=== PATIENT | male | born 1980 | race Caucasian/White ===

== ENCOUNTER → 2024-03-10 08:27 | Outpatient (REF) | payer BC, SELFPAY ==
[2024-03-10 10:16] LABS: ALT (SGPT) 30 U/L (0-50); AST (SGOT) 24 U/L (17-59); Albumin 4.4 g/dl (3.5-5.0); Alkaline Phosphatase 54 U/L (38-126); Blood Urea Nitrogen 14 mg/dl (9-20); Calcium 9.5 mg/dl (8.4-10.2); Carbon Dioxide 27 mmol/L (22-30); Chloride 102 mmol/L (98-107); Glucose 108 mg/dl (70-99); HDL Cholesterol 59 mg/dl; LDL Cholesterol, Calculated 72 mg/dl; Potassium 4.2 mmol/L (3.5-5.1); Sodium 141 mmol/L (135-145); Total Bilirubin 0.3 mg/dl (0.2-1.3); Total Cholesterol 145 mg/dl (50-199); Total Protein 6.7 g/dl (6.3-8.2); Triglyceride 70 mg/dl (10-149); Very Low Density Lipoprotein 14 mg/dl (0-30); eGFR > 60.00
[2024-03-10 10:27] LABS: TSH 1.34 uIU/ml (0.47-4.68)
== END ==
LOC: HWLAB 08:27
PROVIDERS: ATTENDING PHYSICIAN Family Medicine
DX: R73.03 Prediabetes (principal); E78.2 Mixed hyperlipidemia
CPT/HCPCS: 36415; 80053; 80061; 83036; 84443

== ENCOUNTER 2024-03-10 14:29 | Emergency (ER) | payer BC, SELFPAY ==
[2024-03-10] VITALS (8 sets, daily range): BP systolic 135–197; BP diastolic 88–108
[2024-03-10 15:01] LABS: % Basophils 0.5 % (0-2); % Eosinophils 2.5 % (0-6); % Immature Granulocytes 0.5 % (0-0.5); % Monocytes 5.5 % (1.7-9.3); Absolute Basophils 0.1 10^3/uL (0-0.2); Absolute Eosinophils 0.4 10^3/uL (0-0.7); Absolute Immature Granulocytes 0.1 10^3/uL (0-0.05); Absolute Lymphocytes 3.7 10^3/uL (1.2-3.4); Absolute Monocytes 0.8 10^3/uL (0.1-0.6); Absolute Neutrophils 9.7 10^3/uL (1.4-6.5); Hematocrit 39.3 % (39.0-52.0); Hemoglobin 13.3 g/dL (13.0-18.0); Mean Corp Hgb Conc. 33.8 g/dL (33.0-37.0); Mean Corpuscular Hgb 27.5 pg (27.0-31.0); Mean Corpuscular Volume 81.4 fL (80.0-94.0); Mean Platelet Volume 11.1 fL (7.4-10.4); Nucleated Red Blood Cells % 0 % (-); Platelet Count 247 10^3/uL (130-400); Red Blood Cell Count 4.83 10^6/uL (4.70-6.10); Red Cell Dist. Width 13.7 % (11.5-14.5); White Blood Cell Count 14.6 10^3/uL (4.8-10.8)
[2024-03-10 15:35] LABS: Troponin I < 0.012 ng/ml
--- NOTE | 2024-03-10 16:46 | ED.GENMED ---
History of Present Illness
<Lois Alva PA-C - Last Filed: 03/10/24 19:41>
General
Chief Complaint: Blood Pressure Problem
Source: patient
Exam Limitations: none
Time Seen by Provider: 03/10/24 16:45
Nursing documentation reviewed up to this point in time: agreed with
History of Present Illness
History of Present Illness:
Patient is a 43-year-old male with history hypertension, diabetes presenting to the emergency department for evaluation of high blood pressure readings at home. Patient states that on Friday he took his blood pressure since his was also
checking her as it was found to be elevated in the 160s over low 100s. Patient called his primary care doctor who decided to start him on a beta-helder. He took 1 dose of metoprolol 50 mg on Friday. He continued to recheck his blood pressure on
Friday and noticed it continuously elevating and his primary care told him to double up on the metoprolol. He was instructed to go to the emergency department if he had blood pressure readings of 200 or greater. Today when he checked his blood
pressure it was 198/120 speaking to the emergency department for further evaluation
Patient denies any chest pain, shortness of breath, dizziness, visual changes. Patient denies any severe headaches, numbness/weakness in lower extremities.
Patient has been on losartan for a few months now. He was previously on amlodipine but stopped due to lower leg swelling.
Past History
<Lois Alva PA-C - Last Filed: 03/10/24 19:41>
Past History
ED Past Medical History: HTN, NIDDM and Other (Aortic aneurysm)
ED Past Surgical History: None
Social History
Tobacco: Non-smoker
Personal:
Living: with family
Employment: Employed
Family History
Family History: Other ('Aortic aneurysm ')
Review of Systems
<Lois Alva PA-C - Last Filed: 03/10/24 19:41>
Review of Systems
Allergies reviewed?: Yes
All Other Systems: ROS reviewed and negative except as documented in HPI and ROS
Phy Exam
<Lois Alva PA-C - Last Filed: 03/10/24 19:41>
Physical Exam
Physical Exam:
Vitals: Hypertensive, otherwise vital signs stable. Afebrile
General: Patient is well appearing, no acute distress. Nontoxic-appearing
Skin: Warm and dry, no rashes or lesions
Head: Normocephalic, atraumatic
Eyes: Sclera nonicteric. EOMs intact. No nystagmus.
Throat: Protecting airway
Neck: Normal ROM, no cervical spine tenderness, no meningismus
Cardiac: Regular rate and rhythm, no murmurs.
Pulm: Normal respiratory effort, no wheezes, rales, rhonchi heard on exam.
Abdomen: Abdomen soft. No abdominal tenderness. No pulsatile mass.
Extremities: No evidence of cyanosis or edema. Great distal pulses
Neuro: AAOx3. CN II-XII intact. No focal neurologic deficits. Strength 5 out of 5 in upper and lower extremities.
Psychiatric: Normal affect.
Course
<Lois Alva PA-C - Last Filed: 03/10/24 19:41>
Orders/Labs/Results
Orders:
Orders
03/10/24 14:39
Electrocardiogram (*1) Urgent
Reason for Study: Hypertension, Benign
EKG- Treatment ONCE
03/10/24 14:50
Complete Blood Count/With Diff Urgent
Troponin I Urgent
Abnormal Lab Results
03/10/24
14:50
WBC 14.6 H 10^3/uL
(4.8-10.8)
MPV 11.1 H fL
(7.4-10.4)
Abs Immat Gran (auto) 0.1 H 10^3/uL
(0-0.05)
Absolute Neuts (auto) 9.7 H 10^3/uL
(1.4-6.5)
Absolute Lymphs (auto) 3.7 H 10^3/uL
(1.2-3.4)
Absolute Monos (auto) 0.8 H 10^3/uL
(0.1-0.6)
03/10/24 14:50
Vital Signs
Blood pressure: 159/98
Initial and Last Documented VS:
Initial Vital Signs
Temp Pulse Resp BP Pulse Ox
97.4 F 78 18 197/108 97
03/10/24 14:35 03/10/24 14:35 03/10/24 14:35 03/10/24 14:35 03/10/24 14:35
Last Documented Vital Signs
Temp Pulse Resp BP Pulse Ox
97.4 F 70 20 155/106 94
03/10/24 14:35 03/10/24 19:35 03/10/24 19:35 03/10/24 19:00 03/10/24 19:35
<Ben Zavala MD - Last Filed: 03/10/24 19:13>
Orders/Labs/Results
Orders:
Orders
03/10/24 14:39
Electrocardiogram (*1) Urgent
Reason for Study: Hypertension, Benign
EKG- Treatment ONCE
03/10/24 14:50
Complete Blood Count/With Diff Urgent
Troponin I Urgent
Abnormal Lab Results
03/10/24
14:50
WBC 14.6 H 10^3/uL
(4.8-10.8)
MPV 11.1 H fL
(7.4-10.4)
Abs Immat Gran (auto) 0.1 H 10^3/uL
(0-0.05)
Absolute Neuts (auto) 9.7 H 10^3/uL
(1.4-6.5)
Absolute Lymphs (auto) 3.7 H 10^3/uL
(1.2-3.4)
Absolute Monos (auto) 0.8 H 10^3/uL
(0.1-0.6)
03/10/24 14:50
Vital Signs
Initial and Last Documented VS:
Initial Vital Signs
Temp Pulse Resp BP Pulse Ox
97.4 F 78 18 197/108 97
03/10/24 14:35 03/10/24 14:35 03/10/24 14:35 03/10/24 14:35 03/10/24 14:35
Last Documented Vital Signs
Temp Pulse Resp BP Pulse Ox
97.4 F 70 20 155/106 94
03/10/24 14:35 03/10/24 19:35 03/10/24 19:35 03/10/24 19:00 03/10/24 19:35
<Lois Alva PA-C - Last Filed: 03/10/24 19:41>
MDM/Problems Addressed
Differential Diagnosis Includes:
Not limited to: Asymptomatic hypertension, hypertensive urgency, hypertensive emergency
MDM/Problems Addressed:
43-year-old male with history HTN presenting with asymptomatic hypertension. Denies any chest pain, shortness of breath, headache, back pain, visual changes. Patient with blood pressure readings of 198/120s at home. Patient currently taking
losartan 100 mg daily for hypertension management. Patient's PCP did recently add metoprolol 50 mg twice daily 2 days ago. Patient has been hypertensive in the emergency department although remains asymptomatic and extremely stable. EKG shows
normal sinus rhythm with no acute ischemic changes. Incomplete right bundle block was noted. Labs reveal chronic leukocytosis otherwise no clinically significant abnormalities. Troponin is negative.
Patient has been monitored in the emergency department for a few hours and has remained completely asymptomatic. Few blood pressure readings have been acceptable and 130s over 80s. Despite persistent hypertension�no indication for IV
antihypertensive management at this time. Patient has had recent changes to blood pressure medication regimen and may need more time to adjust. Will discharge with close return precautions. Patient will be discharged with close primary care
follow-up for further management of hypertension. Patient comfortable this plan. Patient seen with attending physician.
Chronic conditions affecting care:
Hypertension
Acute Exacerbation and/or Progression of Chronic Illness:
Acutely hypertensive
<Lois Alva PA-C - Last Filed: 03/10/24 19:41>
*Pulse Oximetry
Patient hypoxic: no
*EKG
Interpreted by ED Provider?: Yes
EKG Intrepretation Date: 03/10/24
Interpretation: normal
Comparison EKG: changes noted
Heart Rate: 68
Rate: normal
Rhythm: sinus
QRS Pattern: right bundle branch block
*Tobacco Warehouse Manager Interpretation
Rate: Tobacco Warehouse Manager- N/A
*Critical Care Note
Total Time (30-74mins, 75-104mins- exclusive of procedures): Not Applicable
ED Attending Note
<Lois Alva PA-C - Last Filed: 03/10/24 19:41>
-
Portions of this chart may have been created with voice recognition software.� Occasional wrong word or��sound alike� substitutions may have occurred due to the inherent limitations of voice recognition software.
<Ben Zavala MD - Last Filed: 03/10/24 19:13>
ED Attending Note
Patient seen and examined by attending physician: Yes
I performed the substantive portion of visit, reviewed & personally made and approve the management plan that is documented in note by myself or MIKY.: Yes
ED Attending Note:
43-year-old male presents with hypertension. Totally asymptomatic. History of hypertension. No chest pain or shortness of breath. Patient is on losartan 100 mg/day. His physician added metoprolol 50 mg a day but today increased it to 50 mg
twice a day. He took a dose earlier. Again asymptomatic.
On exam patient is nontoxic in no distress. Lungs are clear and equal. Heart regular rate and rhythm no murmur. Abdomen elevated BMI soft nontender. He is no unusual swelling or edema. Grossly nonfocal.
EKG normal sinus rhythm at 68. Incomplete right bundle branch block nonspecific changes. Labs are stable with a chronic leukocytosis. Latest blood pressure 174/102. No indication for admission or IV blood pressure management. Patient is
asymptomatic. Very recent changes in his medication that require some time to stabilize. We will observe for a few more blood pressure readings but best management at this time is to continue his changes that his physician is made and close
follow-up.
Discharge Plan
Departure
Patient Disposition: Home (Routine Discharge)
Date of Disposition: 03/10/24
Time of Disposition: 19:36
Patient with high blood pressure during this ER visit?: Yes
Condition: Good
Covid-19: Not Applicable
Discharge Problem:
Asymptomatic hypertension
Instructions: High Blood Pressure (DC)
Prescriptions:
No Action
metformin 500 mg Tablet
500 mg PO BID
amlodipine 10 mg Tablet
10 mg PO DAILY
Referrals:
Sergio Carrillo MD [Family Provider] - Follow up in 5-7 days
Activity Restrictions/Additional Instructions:
RETURN TO THE EMERGENCY DEPARTMENT WITH ANY CHEST PAIN, SHORTNESS OF BREATH, SEVERE HEADACHE, SEVERE ABDOMINAL PAIN, SEVERE BACK PAIN, NUMBNESS/TINGLING IN LOWER EXTREMITIES, WEAKNESS, WORSENING IN CURRENT SYMPTOMS, OR ANY OTHER CONCERNS
-Continue to take all blood pressure medications as prescribed. You should check your blood pressure daily and return to the emergency department. If you have any readings greater than 200/120 or associated with any symptoms above.
-Stay well hydrated. Eat a balanced diet.
-Follow-up with your primary care provider for further evaluation/management of your high blood pressure.\\
Monitor your symptoms closely and do not hesitate to return to the emergency department with any acute worsening/new symptoms
Interventions
Interventions:
*Risk Screen - Suicide Last Done: 03/10/24 14:35
*General Assessment Last Done: 03/10/24 14:35
*Neglect/Abuse Screening Last Done: 03/10/24 14:35
Discharge Date and Time
Print Language: MOROCCAN
== END 2024-03-10 19:43 | disposition home or self-care (01) ==
LOC: EMR 14:29
PROVIDERS: EMERGENCY PHYSICIAN Emergency Medicine; FAMILY PHYSICIAN Family Medicine
DX: I10 Essential (primary) hypertension (principal); I45.19 Other right bundle-branch block; E11.9 Type 2 diabetes mellitus without complications; I71.9 Aortic aneurysm of unspecified site, without rupture; Z79.899 Other long term (current) drug therapy; Z88.0 Allergy status to penicillin
CPT/HCPCS: 99283; 84484; 85025; 93005

== ENCOUNTER → 2024-03-24 09:15 | Outpatient (REF) | payer BC, SELFPAY ==
[2024-03-24 12:19] LABS: Urine Albumin Negative (Neg - Trace); Urine Bilirubin Negative (Negative); Urine Character Clear (Clear); Urine Color Yellow; Urine Glucose Negative (Negative); Urine Ketone Negative (Negative); Urine Leukocyte Negative (Negative); Urine Nitrite Negative (Negative); Urine Occult Blood Negative (Negative); Urine Urobilinogen Negative (Neg - 1+)
[2024-03-24 12:26] LABS: ALT (SGPT) 33 U/L (0-50); AST (SGOT) 28 U/L (17-59); Albumin 4.4 g/dl (3.5-5.0); Alkaline Phosphatase 61 U/L (38-126); Blood Urea Nitrogen 13 mg/dl (9-20); Calcium 9.6 mg/dl (8.4-10.2); Carbon Dioxide 28 mmol/L (22-30); Chloride 102 mmol/L (98-107); Glucose 99 mg/dl (70-99); HDL Cholesterol 53 mg/dl; LDL Cholesterol, Calculated 86 mg/dl; Potassium 4.2 mmol/L (3.5-5.1); Sodium 137 mmol/L (135-145); Total Bilirubin 0.5 mg/dl (0.2-1.3); Total Cholesterol 161 mg/dl (50-199); Total Protein 6.9 g/dl (6.3-8.2); Triglyceride 111 mg/dl (10-149); Very Low Density Lipoprotein 22 mg/dl (0-30); eGFR > 60.00
[2024-03-24 12:55] LABS: TSH 1.11 uIU/ml (0.47-4.68)
[2024-03-27 05:36] LABS: 24 Hour Urine Total Volume Random mL; Creatinine, Urine per Volume 65 mg/dL; Metanephrine, Urine 53 ug/L; Metanephrine/Creatinine Ratio 82 ug/g CRT (0-300); Normetanephrine, Urine 240 ug/L; Normetanephrine/Creatinine Rat 369 ug/g CRT (0-400); Urine Collection Length Random hr
== END ==
LOC: HWLAB 09:15
PROVIDERS: ATTENDING PHYSICIAN Family Medicine
DX: I10 Essential (primary) hypertension (principal); R73.03 Prediabetes; E78.2 Mixed hyperlipidemia
CPT/HCPCS: 36415; 80053; 80061; 81003; 82384; 83036; 83835; 84443

== ENCOUNTER → 2024-03-29 08:23 | Outpatient (REF) | payer BC, SELFPAY ==
[2024-04-01 01:59] LABS: 24 Hour Urine Total Volume 2500 mL; Creatinine, Urine 24 Hour 2575 mg/d (1000-2500); Creatinine, Urine per Volume 103 mg/dL; Metanephrine, 24 Hour Urine 170 ug/d (55-320); Metanephrine, Urine 68 ug/L; Metanephrine/Creatinine Ratio 66 ug/g CRT (0-300); Normetanephrine, 24 Hour Urine 842 ug/d (114-865); Normetanephrine, Urine 337 ug/L; Normetanephrine/Creatinine Rat 327 ug/g CRT (0-400); Urine Collection Length 24 hr
== END ==
LOC: HWLAB 08:23
PROVIDERS: ATTENDING PHYSICIAN Family Medicine
DX: I10 Essential (primary) hypertension (principal)
CPT/HCPCS: 81050; 82384; 83835

== ENCOUNTER → 2024-04-02 07:59 | Outpatient (REF) | payer BC, SELFPAY | LOC: HWRAD 07:59 | PROVIDERS: ATTENDING PHYSICIAN Family Medicine | DX: I10 Essential (primary) hypertension (principal) | CPT/HCPCS: 76775 ==

== ENCOUNTER → 2024-07-30 07:56 | Outpatient (REF) | payer BC, SELFPAY | LOC: RAD 07:56 | PROVIDERS: ATTENDING PHYSICIAN Specialist; FAMILY PHYSICIAN Family Medicine | DX: I10 Essential (primary) hypertension (principal) | CPT/HCPCS: 93975 ==

== ENCOUNTER → 2024-08-17 09:35 | Outpatient (REF) | payer BC, SELFPAY ==
[2024-08-20 09:58] LABS: Aldosterone, Serum 12.4 ng/dL; Renin Activity Results 0.4 ng/mL/hr
== END ==
LOC: HWLAB 09:35
PROVIDERS: ATTENDING PHYSICIAN Specialist; FAMILY PHYSICIAN Family Medicine
DX: I10 Essential (primary) hypertension (principal)
CPT/HCPCS: 36415; 82088; 84244

== ENCOUNTER → 2024-09-30 09:31 | Outpatient (REF) | payer BC, SELFPAY | LOC: DHSLP 09:31 | PROVIDERS: ATTENDING PHYSICIAN Specialist; FAMILY PHYSICIAN Family Medicine | DX: G47.33 Obstructive sleep apnea (adult) (pediatric) (principal); G47.61 Periodic limb movement disorder | CPT/HCPCS: 95811 ==

== ENCOUNTER → 2025-02-23 12:11 | Outpatient (REF) | payer BC, SELFPAY ==
[2025-02-23 16:03] LABS: Urine Character Clear (Clear)
[2025-02-23 16:05] LABS: ALT (SGPT) 27 U/L (0-50); AST (SGOT) 22 U/L (17-59); Albumin 4.4 g/dl (3.5-5.0); Alkaline Phosphatase 49 U/L (38-126); Blood Urea Nitrogen 17 mg/dl (9-20); Calcium 9.3 mg/dl (8.4-10.2); Carbon Dioxide 25 mmol/L (22-30); Chloride 103 mmol/L (98-107); Glucose 85 mg/dl (70-99); Potassium 4.1 mmol/L (3.5-5.1); Sodium 137 mmol/L (135-145); Total Protein 6.9 g/dl (6.3-8.2); eGFR > 60.00
[2025-02-23 16:45] LABS: Microalb - Urine Creatinine 208.700 mg/dl
[2025-02-23 16:51] LABS: Microalbumin, Random Urine 1.8 mg/dl (0.6-1.7)
== END ==
LOC: HWLAB 12:11
PROVIDERS: ATTENDING PHYSICIAN Specialist; FAMILY PHYSICIAN Family Medicine
DX: I10 Essential (primary) hypertension (principal)
CPT/HCPCS: 36415; 80053; 81003; 82043; 82530; 82570

== ENCOUNTER → 2025-02-28 07:49 | Outpatient (REF) | payer BC, SELFPAY ==
[2025-03-03 14:08] LABS: 24 Hour Urine Total Volume 1400 mL; Cortisol, Free Urine per 24Hr 14.4 ug/d (<=60.0); Cortisol,Urine Free per Volume 10.30 ug/L; Creatinine, Urine 24 Hour 2128 mg/d (1000-2500); Creatinine, Urine per Volume 152 mg/dL; Urine Collection Length 24 hr
== END ==
LOC: HWLAB 07:49
PROVIDERS: ATTENDING PHYSICIAN Specialist; FAMILY PHYSICIAN Family Medicine
DX: I10 Essential (primary) hypertension (principal)
CPT/HCPCS: 81050; 82530

== ENCOUNTER → 2025-03-01 09:46 | Outpatient (REF) | payer BC, SELFPAY ==
[2025-03-01 12:29] LABS: HDL Cholesterol 43 mg/dl; LDL Cholesterol, Calculated 88 mg/dl; Very Low Density Lipoprotein 19 mg/dl (0-30)
[2025-03-01 13:30] LABS: Glycohemoglobin (HgbA1c) 6.0 % (4.0-5.6)
== END ==
LOC: HWLAB 09:46
PROVIDERS: ATTENDING PHYSICIAN Family Medicine
DX: R73.03 Prediabetes (principal); E78.2 Mixed hyperlipidemia
CPT/HCPCS: 36415; 80061; 83036